=== PATIENT | male | born 1975 | race African-American/Black ===

== ENCOUNTER 2017-01-04 01:48 | Emergency (ER) | payer SELFPAY ==
[~2017-01-04] VITALS: Ht 167.6 cm; Wt 69.9 kg
[2017-01-04 01:55] VITALS: BP 109/61
[2017-01-04 02:05] VITALS: BP 109/61
== END 2017-01-04 02:28 | disposition home or self-care (01) ==
LOC: MED 01:48
DX: R21 Rash and other nonspecific skin eruption (principal); K08.89 Other specified disorders of teeth and supporting structures
CPT/HCPCS: 99282